=== PATIENT | female | born 1970 | race Caucasian/White ===

== ENCOUNTER 2021-01-14 10:50 | Emergency (ER) | payer BC ==
[~2021-01-14] VITALS: Ht 154.9 cm; Wt 65.0 kg
--- NOTE | 2021-01-14 11:16 | PHYS DOC ---
Past History Past Medical History: Hypertension Past Surgical History: Appendectomy, Cholecystectomy, Alcohol Use: Rarely General Adult EDM: Chief Complaint: ABDOMINAL PAIN HPI: HPI: Patient is a 50 year old female who presents with abdominal pain. Patient reports having vaginal bleeding which started last night accompanied by pelvic pain, abdominal pain that radiates to her lower back. She also describes a feeling of pressure around her bladder. Describes pain as throbbing, dull, achy. Rated as 8/10 pain at worst which is subsided to 6/10. Said that she had a similar episode 1 year ago. Patient has a history of fibroids which she says causes pain and bleeding. She is postmenopausal. Says that her pain improves when she stands and walks around and that pain is worse with sitting. She says that she has gone through 4 pads since her bleeding started. She took 2 doses of Advil at 10 AM this morning which provided only little improvement. She says that she has been diagnosed with fibroids for years and was brought to the ED by her when she became unable to tolerate pain. Review of Systems: Review of Systems: Constitutional: Denies fever or chills Eyes: Denies redness or eye pain HENT: Denies nasal congestion or sore throat Respiratory: Denies cough or shortness of breath Cardiovascular: Denies chest pain or palpitations GI: Denies nausea, or vomiting. Reports abdominal pain. : Denies dysuria or hematuria. Reports pelvic pain and vaginal bleeding. Musculoskeletal: Denies joint pain. Reports back pain. Integument: Denies rash or skin lesions Neurologic: Denies headache, focal weakness or sensory changes Complete systems were reviewed and found to be within normal limits, except as documented in this note. Allergies: Allergies: Allergies Coded Allergies Type Severity Reaction Last Updated Verified Sulfa (Sulfonamide Antibiotics) Allergy Unknown 01/14/21 Yes shellfish derived Allergy Unknown 01/14/21 Yes Physical Exam: PE: Constitutional: Well developed, well nourished, no acute distress, non-toxic appearance HENT: Normocephalic, atraumatic Eyes: PERRL, EOMI, conjunctiva normal, no discharge Neck: Normal range of motion, no tenderness, supple Lungs & Thorax: No respiratory distress, equal chest rise and fall Abdomen: Soft, no tenderness Skin: Warm, dry, no erythema, no rash Back: No tenderness, no CVA tenderness Extremities: No tenderness, ROM intact, no edema Neurologic: Alert and oriented X 3, normal motor function, normal sensory function, no focal deficits noted Psychologic: Affect normal, judgment normal Current Patient Data: Vital Signs: Vital Signs Date Time Temp Pulse Resp B/P (MAP) Pulse Ox O2 Delivery O2 Flow Rate FiO2 01/14/21 10:55 97.8 75 16 155/82 (106) 98 Room Air EKG: EKG: [] Radiology/Procedures: Radiology/Procedures: [] Heart Score: C/O Chest Pain: N/A Course & Med Decision Making: Course & Med Decision Making Pertinent Labs and Imaging studies reviewed. (See chart for details) Labs and UA were drawn and CT of pelvis was performed. Labs were negative gallbladder disease, sepsis, or infectious process. Patient was given IVF and pain medication which resulted in symptomatic improvement. UA was indeterminate at this time due to large blood content--and the patient elected not to receive a straight cath at this time in shared decision making. As she has no dysuria, fever, flank pain, or other sign of UTI antibiotics are withheld at this time. CT scan confirmed fibroids, but did not show other acute process accounting for patient's symptoms. Patient was prescribed pain medication for discharge, and advised to follow up wither her OBGYN/PCP for further evaluation. Patient stable for discharge with outpatient follow-up with PCP. Discussed fin darlyn and plan with patient, who acknowledges understanding and agreement. Patricia Disclaimer: Patricia Disclaimer: This electronic medical record was generated, in whole or in part, using a voice recognition dictation system. Departure Departure: Impression: Primary Impression: Abdominal pain Qualified Codes: R10.9 - Unspecified abdominal pain Additional Impression: Uterine fibroid Qualified Codes: D25.9 - Leiomyoma of uterus, unspecified Disposition: 01 DC HOME SELF CARE/HOMELESS Condition: STABLE Referrals: AMAURY LLANOS DO (PCP) Patient Instructions: Abdominal Pain (Nonspecific), Uterine Fibroid, [id number] Additional Instructions: Call and make an appointment to see your [facility]PLI[facility] INVESTIGATOR for further evaluation and treatment. Scripts Tramadol Hcl (TRAMADOL HCL) 50 Mg Tablet 50 MG PO PRN Q6HRS PRN for PAIN, #14 TAB Take each tablet with one (1) regular strength Tylenol 325mg Prov: IVONNE ROBLES DO 01/14/21 Ondansetron (ONDANSETRON ODT) 4 Mg Tab.rapdis 1 TAB PO PRN Q6-8HRS PRN for NAUSEA, #16 TAB Prov: IVONNE ROBLES DO 01/14/21 IVONNE ROBLES DO Jan 14, 2021 11:16
[2021-01-14] MEDS ORDERED: KETOROLAC 15 MG/ML VIAL. ONE (11:29)
[2021-01-14] MEDS ORDERED: CONTRAST GIVEN. MC PRN (11:30)
[2021-01-14] MEDS ORDERED: IV NORMAL SALINE 1,000ML 1,000 ML IV ONE (11:30)
[2021-01-14] MEDS ORDERED: KETOROLAC 15 MG/ML VIAL. IVP ONE (11:30)
[2021-01-14] MEDS ORDERED: IOHEXOL 300 MG/ML 75 ML VIAL. IV ONE (11:30)
[2021-01-14 12:09] LABS: BASO % 0 % (0-3); EOS # 0.1 x10^3/uL (0.0-0.7); EOS % 1 % (0-3); HEMOGLOBIN 11.1 g/dL (12.0-15.5); LYMPH # 2.1 x10^3/uL (1.0-4.8); LYMPH % 22 % (24-48); MEAN CORPUSCULAR HEMOGLOBIN 25 pg (25-35); MEAN CORPUSCULAR HGB CONC 32 g/dL (31-37); MEAN CORPUSCULAR VOLUME 78 fL (79-100); MONO # 0.6 x10^3/uL (0.0-1.1); MONO % 6 % (0-9); NEUT # 7.1 x10^3uL (1.8-7.7); NEUT % 71 % (31-73); PLATELET COUNT 259 x10^3/uL (140-400); RED BLOOD COUNT 4.47 x10^6/uL (3.50-5.40); RED CELL DISTRIBUTION WIDTH 17.5 % (11.5-14.5)
[2021-01-14 12:12] LABS: CALCIUM 9.2 mg/dL (8.5-10.1); CREATININE 0.7 mg/dL (0.6-1.0); GFR 88.2; POTASSIUM 3.9 mmol/L (3.5-5.1)
[2021-01-14 12:19] LABS: ALBUMIN 3.8 g/dL (3.4-5.0); ALBUMIN/GLOBULIN RATIO 1.1 (1.0-1.7); MAGNESIUM 1.6 mg/dL (1.8-2.4); TOTAL BILIRUBIN 0.5 mg/dL (0.2-1.0); TOTAL PROTEIN 7.2 g/dL (6.4-8.2)
[2021-01-14 12:35] LABS: CLARITY,URINE BLOODY; COLOR,URINE RED
--- NOTE | 2021-01-14 12:35 | RAD ---
INDICATION: Reason: abdominal/pelvic pain / Spl. Instructions: / History: . COMPARISON: None. TECHNIQUE: Axial CT images obtained through the abdomen and pelvis with contrast. One or more of the following individualized dose reduction techniques were utilized for this examinat ion: 1. Automated exposure control; 2. Adjustment of the mA and/or kV according to patient size; 3 . Use of iterative reconstruction technique. FINDINGS: The abdominal aorta is not aneurysmal. Mild scattered plaque. Postcholecystectomy changes. No peripancreatic fluid collection. Spleen is unremarkable. No hydronephrosis. Nonobstructive right renal stone. Sigmoid colon is not very distended but the wall does appear prominent with mild indistinctness of ad jacent fat. Colonic diverticulosis. No dilated loops of bowel to suggest obstruction. Appendix is not well seen. Degenerative changes the spine. Multiple masses are seen within the uterus. For example at the fundus intramural partially calcified on the left measuring up to about 3 cm. The endometrial stripe is thickened and irregular appearing m easuring up to approximately 15 mm. Within the lower uterine segment to cervical region there is an a dditional low-density mass identified measuring approximately 37 x 34 mm. IMPRESSION: * There is some apparent wall thickening of the sigmoid colon with haziness to the adjacent fat. Wou ld correlate with symptoms in the region since causes such as diverticulitis could have this appearan ce. Additionally may be helpful to obtain a follow-up to ensure that this does not persist to exclude a lesion within the sigmoid colon if the patient has not had a recent colonoscopy. * The uterus is enlarged with multiple low-density masses within. Most common cause would be multipl e uterine fibroids. There is also some thickening of the endometrial stripe with differential conside rations including endometrial hyperplasia as well as endometrial neoplasm. A portion of some of the l esions encroach on the endometrial stripe. * There is also a lesion seen at the lower uterine segment to cervical region which could be contrib uting to the thickening of the endometrial stripe by causing mass effect on the cervix. This mass in the lower uterine segment to cervical region could be secondary to an additional fibroid although cer vical origin neoplasm is also within differential. Would correlate with physical exam findings. Addit ionally ultrasound or MRI could be helpful to further evaluate. Electronically signed by: Negro Sullivan MD (01/14/2021 12:33 PM) [id number]
[2021-01-14 12:36] LABS: BACTERIA,URINE 0 /HPF (0-FEW); RBC,URINE TNTC /HPF (0-2); SQUAMOUS EPITHELIAL CELL,UR FEW /LPF; WBC,URINE 20-40 /HPF (0-4)
[2021-01-14 12:49] VITALS: BP 147/81
[2021-01-14] MEDS ORDERED: ONDA4TAB12 PO (12:54)
[2021-01-14] MEDS ORDERED: TRAM50TA PO (12:54)
== END 2021-01-14 13:12 | disposition home or self-care (01) ==
LOC: ER 10:50
DX: D25.9 Leiomyoma of uterus, unspecified (principal); R10.2 Pelvic and perineal pain; I10 Essential (primary) hypertension; Z90.89 Acquired absence of other organs; Z90.49 Acquired absence of other specified parts of digestive tract; Z98.890 Other specified postprocedural states; Z88.2 Allergy status to sulfonamides; Z91.013 Allergy to seafood
CPT/HCPCS: 36415; 74177; 80053; 81001; 83690; 83735; 85025; 85610; 85730; 87086; 96361; 96374; 96375; 99285; J1885; J3010; J7030; Q9967